=== PATIENT | male | born 1980 | race American Indian/Alaskan Native ===

== ENCOUNTER 2018-07-16 09:14 | Emergency (ER) | payer OTHER ==
[2018-07-16 09:40] VITALS: BP 134/82
[2018-07-16] MEDS ORDERED: ALUM-MAG HYDROX-SIMETH 200-200-20MG/5ML PO ONE (10:08)
[2018-07-16] MEDS ORDERED: PROTONIX PO ONE (10:08)
[2018-07-16] MEDS ORDERED: LIDOCAINE VISCOUS 2% PO ONE (10:08)
--- NOTE | 2018-07-16 10:13 | Emergency Department Report ---
ED Chest Pain HPI - General Chief Complaint: Chest Pain Stated Complaint: CHEST PAIN/SOB Time Seen by Provider: 07/16/18 10:03 Source: patient Mode of arrival: Ambulatory Limitations: No Limitations - History of Present Illness Initial Comments: Patient is a 38-year-old -[place] male who comes to the ER with a history of substernal chest pain since . The pain is described as a burning that radiates up into the left chest and arm. Patient states he gets some relief with Pepcid AC. However, this pain keeps coming back and it has nev er lasted this long. Patient does belch. Patient takes Pepcid at home. He has a known history of GERD. And also reports that he has been short of breath and this is new for him. However, patient is obese, has hypertension on numerous medications, hyperlipidemia on a statin. He also has a family history with both grandfathers dying of heart disease. His mother is alive and well. Father has hypertension. Patient has never smoked. 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 -: Gradual, days(s) (5) Onset: during rest, during exertion, after eating Pain Location: substernal, left chest Severity: mild Severity scale (0 -10): 5 Quality: other (burning) Consistency: intermittent Improves With: antacids Worsens With: nothing re: dyspnea Aspirin use within the Past 7 Days: (0) No - Related Data Home Medications Medication Instructions Recorded Confirmed Last Taken RX: Chlorthalidone [Thalitone] 25 mg PO QDAY 01/19/14 01/19/14 01/18/14 20:00 RX: Famotidine [Pepcid] 20 mg PO BID 01/19/14 01/19/14 01/19/14 04:00 RX: Metoprolol [Lopressor TAB] 25 mg PO BID 01/19/14 01/19/14 01/18/14 20:00 RX: NIFEdipine [NIFEdipine ER] 90 mg PO QDAY 01/19/14 01/19/14 01/18/14 20:00 Previous Rx's Medication Instructions Recorded Last Taken Type RX: Simvastatin 40 mg PO QHS #30 tablet 01/20/14 Unknown Rx Pantoprazole [Protonix] 40 mg PO QDAY #30 tablet 07/16/18 Unknown Rx Allergies Allergy/AdvReac Type Severity Reaction Status Date / Time No Known Allergies Allergy Verified 01/19/14 05:26 Heart Score - HEART Score History: Slightly suspicious EKG: Non-specific Age: < 45 Risk factors: > 3 risk factors or hx of atherosclerotic disease Troponin: < normal limit HEART Score: 3 ED Review of Systems ROS: Stated complaint: CHEST PAIN/SOB Other details as noted in HPI Comment: All other systems reviewed and negative Constitutional: denies: chills Eyes: denies: eye pain ENT: denies: ear pain Respiratory: see HPI, shortness of breath Cardiovascular: as per HPI, chest pain Endocrine: denies: excessive sweating Gastrointestinal: as per HPI Genitourinary: denies: urgency Musculoskeletal: denies: back pain Skin: denies: lesions Neurological: denies: headache Psychiatric: denies: depression Hematological/Lymphatic: denies: easy bleeding ED Past Medical Hx - Past Medical History Previous Medical History?: Yes Hx Hypertension: Yes Additional medical history: hyperlipedemia, OBESE - Surgical History Past Surgical History?: No - Family History Family history: hypertension (DAD), other (GRANDFATHER X 2 CAD) - Social History Smoking Status: Never Smoker Substance Use Type: Alcohol - Medications Home Medications: Home Medications Medication Instructions Recorded Confirmed Last Taken Type RX: Chlorthalidone [Thalitone] 25 mg PO QDAY 01/19/14 01/19/14 01/18/14 20:00 History RX: Famotidine [Pepcid] 20 mg PO BID 01/19/14 01/19/14 01/19/14 04:00 History RX: Metoprolol [Lopressor TAB] 25 mg PO BID 01/19/14 01/19/14 01/18/14 20:00 History RX: NIFEdipine [NIFEdipine ER] 90 mg PO QDAY 01/19/14 01/19/14 01/18/14 20:00 History RX: Simvastatin 40 mg PO QHS #30 tablet 01/20/14 Unknown Rx Pantoprazole [Protonix] 40 mg PO QDAY #30 tablet 07/16/18 Unknown Rx ED Physical Exam - General Limitations: No Limitations General appearance: alert - Head Head exam: Present: atraumatic - Eye Eye exam: Present: normal appearance, PERRL, EOMI - ENT ENT exam: Present: normal exam, mucous membranes moist - Neck Neck exam: Present: normal inspection - Respiratory Respiratory exam: Present: normal lung sounds bilaterally - Cardiovascular Cardiovascular Exam: Present: regular rate - GI/Abdominal GI/Abdominal exam: Present: soft, normal bowel sounds - Rectal Rectal exam: Present: deferred - Extremities Exam Extremities exam: Present: normal inspection, full ROM - Back Exam Back exam: Present: normal inspection, full ROM - Neurological Exam Neurological exam: Present: alert, oriented X3, CN II-XII intact, normal gait - Psychiatric Psychiatric exam: Present: normal affect, normal mood - Skin Skin exam: Present: warm, dry ED Course Vital Signs 07/16/18 07/16/18 09:37 10:30 Temperature 98.3 F Pulse Rate 65 Respiratory 16 16 Rate Blood Pressure 134/82 O2 Sat by Pulse 98 Oximetry SHAMAR score - Shamar Score Age > 65: (0) No Aspirin use within the Past 7 Days: (0) No 3 or more CAD Risk Factors: (1) Yes 2 or more Angina events in past 24 hrs: (0) No Known CAD with more than 50% Stenosis: (0) No Elevated Cardiac Markers: (0) No ST Deviation Greater than 0.5mm: (0) No SHAMAR Score: 1 ED Medical Decision Making - Lab Data Result diagrams: 07/16/18 10:15 07/16/18 10:15 - EKG Data -: EKG Interpreted by Md EKG shows normal: sinus rhythm Rate: normal, bradycardia (ON CA CHANNEL AND BETA BRENDEN FOR BP) - EKG Data Interpretation: nonspecific ST-T wave jenny (HYPERACUTE T WAVES IN ANT LEADS) - Radiology Data Radiology results: report reviewed, image reviewed [facility] - Medical Decision Making Labs 07/16/18 07/16/18 10:15 10:15 WBC 6.7 RBC 5.60 H Hgb 15.2 Hct 45.8 H MCV 82 L MCH 27 L MCHC 33 RDW 15.7 H Plt Count 227 Sodium 136 L Potassium 4.5 Chloride 100.3 Carbon Dioxide 23 Anion Gap 17 BUN 13 Creatinine 1.0 Estimated GFR > 60 BUN/Creatinine Ratio 13 Glucose 184 H Calcium 8.9 Troponin T < 0.010 Vital Signs 07/16/18 07/16/18 09:37 10:30 Temperature 98.3 F Pulse Rate 65 Respiratory 16 16 Rate Blood Pressure 134/82 O2 Sat by Pulse 98 Oximetry medicated with gi cocktail and protonix with relief 12 lead repeated- no change will dc home with follow up to cardiology and GI Critical care attestation.: If time is entered above; I have spent that time in minutes in the direct care of this critically ill patient, excluding procedure time. ED Disposition Clinical Impression: GERD (gastroesophageal reflux disease), Chest pain Disposition: DC-01 TO HOME OR SELFCARE Is pt being admited?: No Does the pt Need Aspirin: No Condition: Stable Instructions: Chest Pain (ED), Gastroesophageal Reflux Disease (ED) Additional Instructions: bland diet meds per routine hydrate well with water follow up with cardiology for stress test due to risk factors referral below you may also end up needing to see GI MD to evaluate your GERD and see if you might have a hiatal hernia that is causing some symptoms meds per routine Prescriptions: Pantoprazole [Protonix] 40 mg PO QDAY #30 tablet Referrals: DEMETRA ALBERTO MD [Staff Physician] - 3-5 Days ARSENIO MATTHEWS MD [Staff Physician] - 3-5 Days SOFIE PHAN MD [Staff Physician] - 3-5 Days CHRISSY TANNER MD [Staff Physician] - 3-5 Days Forms: Work/School Release Form(ED) Time of Disposition: 11:00
[2018-07-16 10:26] LABS: Hematocrit 45.8 % (35.5-45.6); Hemoglobin 15.2 gm/dl (11.8-15.2); Mean Corpuscular HGB Conc 33 % (32-34); Mean Corpuscular Volume 82 fl (84-94); Platelet Count 227 K/mm3 (140-440); Red Cell Distribution Width 15.7 % (13.2-15.2)
[2018-07-16 10:38] LABS: BUN/Creatinine Ratio 13; Blood Urea Nitrogen 13 mg/dL (9-20); Calcium 8.9 mg/dL (8.4-10.2); Hemolysis Index 10
--- NOTE | 2018-07-16 10:46 | XRay Report ---
ROUTINE CHEST, TWO VIEWS: HISTORY: Shortness of breath. The trachea, heart, mediastinal contour, lung chinchilla and bony thorax are unremarkable. IMPRESSION: Unremarkable chest x-ray.
== END 2018-07-16 11:15 | disposition home or self-care (01) ==
LOC: ED 09:14
DX: K21.9 Gastro-esophageal reflux disease without esophagitis (principal); I10 Essential (primary) hypertension; E78.00 Pure hypercholesterolemia, unspecified
CPT/HCPCS: 36415; 71046; 80048; 84484; 85027; 93005; 93010

== ENCOUNTER 2021-08-24 20:15 | Emergency (ER) | payer OTHER ==
[2021-08-24 21:51] LABS: Bilirubin,Urine NEG (Negative); Blood,Urine NEG (Negative); Color,Urine Yellow (Yellow); Hyaline Casts,Urine 1 /LPF; Mucus,Urine FEW /HPF; Protein,Urine <15 mg/dL mg/dL (Negative); Urobilinogen,Urine < 2.0 mg/dL (<2.0)
[2021-08-25] MEDS ORDERED: KETOROLAC 30 MG/1 ML INJ IM ONE (00:22)
--- NOTE | 2021-08-25 00:43 | XRay Report ---
Lumbar spine 2 views INDICATION: Low back pain. IMPRESSION: Mild multilevel discogenic and facet arthropathy particularly at L5-S1. There is mild poppy ateral neural foraminal narrowing at L4-L5 and L5-S1 secondary to degenerative changes. Signer Name: Livan Gibson MD Signed: 08/25/2021 12:39 AM Workstation Name: [email or web address]
--- NOTE | 2021-08-25 00:57 | Emergency Department Report ---
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 Presents with bilateral lower back pain with CVA tenderness and subjective urinary frequency urgency times 3 days. Saw primary care doctor on Monday was concern for renal stone. No fevers no chills no hematuria no nausea no vomiting however. Patient is tolerating p.o. intake. Pain is rated at 5/10 exacerbated by bending twisting and reaching. Pain is relieved by nothing tried. Is been no numbness no tingling no paralysis no loss or decrease in bowel or bladder function. Patient drove self to ED tonight patient alert oriented x3 and amatory with steady gait. - Related Data Home Medications Medication Instructions Recorded Confirmed Last Taken Chlorthalidone [Thalitone] 25 mg PO QDAY 01/19/14 01/19/14 01/18/14 20:00 Famotidine [Pepcid] 20 mg PO BID 01/19/14 01/19/14 01/19/14 04:00 Metoprolol [Lopressor TAB] 25 mg PO BID 01/19/14 01/19/14 01/18/14 20:00 NIFEdipine [NIFEdipine ER] 90 mg PO QDAY 01/19/14 01/19/14 01/18/14 20:00 Previous Rx's Medication Instructions Recorded Last Taken Type Simvastatin 40 mg PO QHS #30 tablet 01/20/14 Unknown Rx Pantoprazole [Protonix] 40 mg PO QDAY #30 tablet 07/16/18 Unknown Rx Cyclobenzaprine [Flexeril] 10 mg PO TID PRN #20 tab 08/25/21 Unknown Rx Naproxen 500 mg PO BID #30 tab 08/25/21 Unknown Rx cephALEXin [Keflex] 500 mg PO Q12HR 7 Days #14 cap 08/25/21 Unknown Rx Allergies Allergy/AdvReac Type Severity Reaction Status Date / Time No Known Allergies Allergy Verified 01/19/14 05:26 ED Review of Systems ROS: Stated complaint: BACK PAIN/RT ARM AND LEG TIGHTNESS Other details as noted in HPI Constitutional: denies: chills, fever Eyes: denies: eye pain, eye discharge, vision change ENT: denies: ear pain, throat pain Respiratory: denies: cough, shortness of breath, wheezing Cardiovascular: denies: chest pain, palpitations Endocrine: no symptoms reported Gastrointestinal: denies: abdominal pain, nausea, vomiting, diarrhea Genitourinary: urgency. denies: dysuria, hematuria, discharge Musculoskeletal: back pain. denies: arthralgia, myalgia Skin: denies: rash, lesions Neurological: denies: headache, weakness, paresthesias Psychiatric: denies: anxiety, depression Hematological/Lymphatic: denies: easy bleeding, easy bruising ED Past Medical Hx - Past Medical History Hx Hypertension: Yes Additional medical history: hyperlipedemia, OBESE - Social History Smoking Status: Never Smoker Substance Use Type: Alcohol - Medications Home Medications: Home Medications Medication Instructions Recorded Confirmed Last Taken Type Chlorthalidone [Thalitone] 25 mg PO QDAY 01/19/14 01/19/14 01/18/14 20:00 History Famotidine [Pepcid] 20 mg PO BID 01/19/14 01/19/14 01/19/14 04:00 History Metoprolol [Lopressor TAB] 25 mg PO BID 01/19/14 01/19/14 01/18/14 20:00 History NIFEdipine [NIFEdipine ER] 90 mg PO QDAY 01/19/14 01/19/14 01/18/14 20:00 History Simvastatin 40 mg PO QHS #30 tablet 01/20/14 Unknown Rx Pantoprazole [Protonix] 40 mg PO QDAY #30 tablet 07/16/18 Unknown Rx Cyclobenzaprine [Flexeril] 10 mg PO TID PRN #20 tab 08/25/21 Unknown Rx Naproxen 500 mg PO BID #30 tab 08/25/21 Unknown Rx cephALEXin [Keflex] 500 mg PO Q12HR 7 Days #14 cap 08/25/21 Unknown Rx ED Physical Exam - General Limitations: No Limitations General appearance: alert, in no apparent distress - Head Head exam: Present: normocephalic, normal inspection - Eye Eye exam: Present: normal appearance, EOMI Pupils: Present: normal accommodation - ENT ENT exam: Present: mucous membranes moist - Neck Neck exam: Present: normal inspection, full ROM. Absent: tenderness, meningismus - Respiratory Respiratory exam: Present: normal lung sounds bilaterally. Absent: respiratory distress, wheezes, stridor, chest wall tenderness - Cardiovascular Cardiovascular Exam: Present: regular rate, normal rhythm, normal heart sounds. Absent: systolic murmur, diastolic murmur, rubs, gallop - GI/Abdominal GI/Abdominal exam: Present: soft, normal bowel sounds. Absent: distended, tenderness - Rectal Rectal exam: Present: deferred - Extremities Exam Extremities exam: Present: normal inspection, full ROM, normal capillary refill. Absent: tenderness - Back Exam Back exam: Present: normal inspection, full ROM, CVA tenderness (R), CVA tenderness (L), muscle spasm, paraspinal tenderness. Absent: vertebral tenderness, rash noted - Expanded Back Exam Expanded Back exam: Absent: saddle anesthesia Back exam: Negative Straight Leg Raising: Left, Right - Neurological Exam Neurological exam: Present: alert, oriented X3, CN II-XII intact, normal gait - Expanded Neurological Exam Expanded Patient oriented to: Present: person, place, time Speech: Present: fluid speech Motor strength exam: RUE: 5, LUE: 5, RLE: 5, LLE: 5 Best Eye Response (Orange): (4) open spontaneously Best Motor Response (Xavier): (6) obeys commands Best Verbal Response (Orange): (5) oriented Orange Total: 15 - Psychiatric Psychiatric exam: Present: normal affect, normal mood - Skin Skin exam: Present: warm, dry, intact, normal color. Absent: rash ED Course Vital Signs 08/24/21 20:21 Temperature 98.6 F Pulse Rate 97 H Respiratory 12 Rate Blood Pressure 150/94 O2 Sat by Pulse 99 Oximetry ED Medical Decision Making - Lab Data Result diagrams: 08/25/21 00:28 08/25/21 00:28 Labs 08/24/21 08/25/21 08/25/21 Unknown 00:28 00:28 WBC 8.8 RBC 5.17 H Hgb 13.7 Hct 43.0 MCV 83 L MCH 27 L MCHC 32 RDW 15.4 H Plt Count 197 Lymph % (Auto) 32.6 [place] % (Auto) 5.9 Eos % (Auto) 1.5 Baso % (Auto) 0.9 Lymph # (Auto) 2.9 [place] # (Auto) 0.5 Eos # (Auto) 0.1 Baso # (Auto) 0.1 Seg Neutrophils % 59.1 Seg Neutrophils # 5.2 Sodium 136 L Potassium 3.3 L Chloride 97.7 L Carbon Dioxide 24 Anion Gap 18 BUN 16 Creatinine 1.1 Estimated GFR > 60 BUN/Creatinine Ratio 15 Glucose 126 H Calcium 8.8 Total Bilirubin 0.30 AST 24 ALT 31 Alkaline Phosphatase 96 Total Protein 7.9 Albumin 4.3 Albumin/Globulin Ratio 1.2 Urine Color Yellow Urine Turbidity Clear Urine pH 5.0 Ur Specific [place] 1.019 Urine Protein <15 mg/dl Urine Glucose (UA) Neg Urine Ketones Neg Urine Blood Neg Urine Nitrite Neg Urine Bilirubin Neg Urine Urobilinogen < 2.0 Ur Leukocyte Esterase Sm Urine WBC (Auto) 7.0 H Urine RBC (Auto) 1.0 U Epithel Cells (Auto) 7.0 Hyaline Casts 1 Urine Mucus Few - Radiology Data Radiology results: report reviewed, image reviewed Lumbar spine 2 views INDICATION: Low back pain. IMPRESSION: Mild multilevel discogenic and facet arthropathy particularly at L5- S1. There is mild bilateral neural foraminal narrowing at L4-L5 and L5-S1 secondary to degenerative changes. Signer Name: Livan Gibson MD Signed: 08/25/2021 12:39 AM Workstation Name: [id number] Transcribed By: Dictated By: Livan Gibson MD Electronically Authenticated By: Livan Gibson MD Signed Date/Time: 08/25/2138 DD/ TD/TT: - Medical Decision Making Lumbar x-ray demonstrates lumbar degenerative changes as chronic. Urine noted for mild leukocytes. Plan DC to home with prescriptions. Back exercises moist heat therapy follow-up with his primary care doctor in 2 to 3 days. Patient verbalized agreement and understanding with discharge plan. Patient DC'd home in stable condition at this time. Critical care attestation.: If time is entered above; I have spent that time in minutes in the direct care of this critically ill patient, excluding procedure time. ED Disposition Clinical Impression: Low back strain Qualifiers: Encounter type: initial encounter Qualified Code(s): S39.012A - Strain of muscl e, fascia and tendon of lower back, initial encounter UTI (urinary tract infection) Qualifiers: Urinary tract infection type: acute cystitis Hematuria presence: without hematuria Qualified Code(s): N30.00 - Acute cystitis without hematuria Disposition: 01 HOME / SELF CARE / HOMELESS Is pt being admited?: No Does the pt Need Aspirin: No Condition: Stable Instructions: Lumbosacral Strain, Low Back Sprain or Strain Rehab-SportsMed, Urinary Tract Infection, Adult Additional Instructions: Take medications as prescribed. Follow-up with your doctor in 2 to 3 days. back exercises as directed. Return to emergency department should symptoms wo rsen. Prescriptions: Cyclobenzaprine [Flexeril] 10 mg PO TID PRN #20 tab PRN Reason: muscle spasm cephALEXin [Keflex] 500 mg PO Q12HR 7 Days #14 cap Naproxen 500 mg PO BID #30 tab Referrals: OCTAVIO GUAMAN MD [Staff Physician] - 3-5 Days Forms: Work/School Release Form(ED) Time of Disposition: 02:16
[2021-08-25 01:13] LABS: Basophils # (Auto) 0.1 K/mm3 (0.0-0.1); Basophils % (Auto) 0.9 % (0.0-1.8); Eosinophils # (Auto) 0.1 K/mm3 (0.0-0.4); Eosinophils % (Auto) 1.5 % (0.0-4.3); Hemoglobin 13.7 gm/dl (11.8-15.2); Lymphocytes # (Auto) 2.9 K/mm3 (1.2-5.4); Lymphocytes % (Auto) 32.6 % (13.4-35.0); Mean Corpuscular HGB Conc 32 % (32-34); Mean Corpuscular Volume 83 fl (84-94); Monocytes # (Auto) 0.5 K/mm3 (0.0-0.8); Monocytes % (Auto) 5.9 % (0.0-7.3); Platelet Count 197 K/mm3 (140-440); Red Blood Count 5.17 M/mm3 (3.65-5.03); Red Cell Distribution Width 15.4 % (13.2-15.2)
[2021-08-25 01:24] LABS: Alanine Aminotransferase 31 units/L (7-56); Albumin 4.3 g/dL (3.9-5); BUN/Creatinine Ratio 15; Blood Urea Nitrogen 16 mg/dL (9-20); Calcium 8.8 mg/dL (8.4-10.2); Hemolysis Index 24
[2021-08-25 02:48] VITALS: BP 152/96
== END 2021-08-25 02:48 | disposition home or self-care (01) ==
LOC: ED 20:15
DX: S39.012A Strain of muscle, fascia and tendon of lower back, initial encounter (principal); N39.0 Urinary tract infection, site not specified; I10 Essential (primary) hypertension; Z79.899 Other long term (current) drug therapy; X50.1XXA Overexertion from prolonged static or awkward postures, initial encounter; Y93.89 Activity, other specified; Y92.89 Other specified places as the place of occurrence of the external cause; Y99.8 Other external cause status
CPT/HCPCS: 36415; 72100; 80053; 81001; 85025; 96372; 99283; J1885